=== PATIENT | male | born 1965 | race Caucasian/White ===

== ENCOUNTER → 2017-04-19 | Outpatient (CLI) | payer MEDICAID | LOC: FIMAGING 15:20 | PROVIDERS: ATTEND Psychiatry & Neurology Neurology | DX: J32.9 Chronic sinusitis, unspecified (principal); E11.9 Type 2 diabetes mellitus without complications ==

== ENCOUNTER 2017-10-21 | Emergency (ER) | payer MEDICAID | END 2017-10-21 13:03 | disposition home or self-care (01) | DX: S16.1XXA Strain of muscle, fascia and tendon at neck level, initial encounter (principal); E11.9 Type 2 diabetes mellitus without complications; W10.9XXA Fall (on) (from) unspecified stairs and steps, initial encounter ==

== ENCOUNTER 2018-05-17 15:57 | Inpatient (IN) | payer MEDICAID ==
[2018-05-17] MEDS ORDERED: NS 1,000 ML IV ONE (16:17)
[2018-05-17] MEDS ORDERED: ONDANSETRON 4 MG/2 ML VIAL IVP ONE (16:17)
[2018-05-17 16:41] LABS: PLATELET COUNT 269 10^3/uL (150-400)
--- NOTE | 2018-05-17 16:48 | EDPHY ---
H & P Time Seen by Provider: 05/17/18 16:16 HPI/ROS: Chief complaint. Vomiting HPI. Patient is a 53-year-old male who tells me initially "my life is crap". This is occurred since February 22. He had eye surgery on February 22 and was blind in the eye for about 5 weeks. He then developed stomach flu which he has had for 2 and half months which he describes as nausea and vomiting, burping , gas. His PCP wanted colonoscopy but apparently they were unable to perform this secondary to remaining stool in the colon. PCP also wanted his pancreas checked. He has had no fever. He complains of decreased energy. Occasional shallow breathing. He feels he has a brick in his throat. 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 He occasionally has intermittent diarrhea. ROS 10 systems were reviewed and negative with the exception of the elements mentioned in the history of present illness Past Medical/Surgical History: Orally controlled diabetes, legally blind Social History: Single, nonsmoker, no alcohol Smoking Status: Never smoked Physical Exam: General Appearance: Alert well-developed male mild distress vital signs are stable Eyes: Pupils equal and round no pallor or injection. ENT, pharynx without injection. No stridor. Swallowing secretions Respiratory: There are no retractions, lungs are clear to auscultation. Cardiovascular: Regular rate and rhythm. Gastrointestinal: Abdomen is soft and nontender, no masses, bowel sounds normal. Neurological: Awake and alert, sensory and motor exams grossly normal. Skin: Warm and dry, no rashes. Musculoskeletal: Neck is supple nontender. Extremities symmetrical, full range of motion. Psychiatric: Patient is oriented X 3, there is no agitation. Constitutional: Initial Vital Signs Temperature (C) 36.4 C 05/17/18 16:06 Heart Rate 86 05/17/18 16:06 Respiratory Rate 16 05/17/18 16:06 Blood Pressure 131/81 H 05/17/18 16:06 O2 Sat (%) 96 05/17/18 16:06 O2 Delivery Mode Room Air Allergies/Adverse Reactions: No Known Allergies Allergy (Unverified 10/21/17 11:38) Home Medications: Medication Instructions Recorded Cyclobenzaprine [Flexeril 10 MG 10 mg PO TID #15 tab 10/21/17 (RX)] Genofibrozil 10/21/17 glyBURIDE [Glyburide] 5 mg PO 10/21/17 metFORMIN HCL [Glucophage 500 mg 500 mg PO 10/21/17 (*)] Medical Decision Making - Diagnostics EKG Interpretation: EKG interpreted by me shows normal sinus rhythm the normal interval. Possible old anterior septal RI. No significant ST elevation or depression. No arrhythmia. 1 Pac. The rate is 79 No previous EKG for comparison Imaging Results: Imaging Impressions Chest X-Ray 05/17/18 16:44 Impression: Negative portable chest. Chest x-ray interpreted by me is normal CT abdomen pelvis reviewed by me and discussed with Dr. Kauffman is nonacute Procedures: IV normal saline ED Course/Re-evaluation: Re-evaluation 6:00 p.m.. Patient and I discussed imaging and lab results. We discussed treatment plan including recommendation for admission. He expresses understanding and agreement I consulted discussed the case with , hospitalist, who agrees to the admission Differential Diagnosis: Patient has pancreatitis. I considered small-bowel obstruction, diverticulitis - Data Points Laboratory Results: Laboratory Results 05/17/18 16:35 05/17/18 16:35 05/17/18 05/17/18 05/17/18 16:42 16:35 16:35 WBC 13.02 10^3/uL H 10^3/uL (3.80-9.50) RBC 5.40 10^6/uL 10^6/uL (4.40-6.38) Hgb 15.8 g/dL g/dL (13.7-17.5) Hct 47.3 % % (40.0-51.0) MCV 87.6 fL fL (81.5-99.8) MCH 29.3 pg pg (27.9-34.1) MCHC 33.4 g/dL g/dL (32.4-36.7) RDW 13.1 % % (11.5-15.2) Plt Count 269 10^3/uL 10^3/uL (150-400) MPV 10.3 fL fL (8.7-11.7) Neut % (Auto) 62.1 % % (39.3-74.2) Lymph % (Auto) 20.7 % % (15.0-45.0) [place] % (Auto) 8.4 % % (4.5-13.0) Eos % (Auto) 8.2 % H % (0.6-7.6) Baso % (Auto) 0.3 % % (0.3-1.7) Nucleat RBC Rel Count 0.0 % % (0.0-0.2) Absolute Neuts (auto) 8.09 10^3/uL H 10^3/uL (1.70-6.50) Absolute Lymphs (auto) 2.69 10^3/uL 10^3/uL (1.00-3.00) Absolute Monos (auto) 1.09 10^3/uL H 10^3/uL (0.30-0.80) Absolute Eos (auto) 1.07 10^3/uL H 10^3/uL (0.03-0.40) Absolute Basos (auto) 0.04 10^3/uL 10^3/uL (0.02-0.10) Absolute Nucleated RBC 0.00 10^3/uL 10^3/uL (0-0.01) Immature Gran % 0.3 % % (0.0-1.1) Immature Gran # 0.04 10^3/uL 10^3/uL (0.00-0.10) Sodium 137 mEq/L mEq/L (135-145) Potassium 4.3 mEq/L mEq/L (3.5-5.2) Chloride 101 mEq/L mEq/L (97-110) Carbon Dioxide 25 mEq/l mEq/l (22-31) Anion Gap 11 mEq/L mEq/L (6-14) BUN 13 mg/dL mg/dL (7-23) Creatinine 0.7 mg/dL mg/dL (0.7-1.3) Estimated GFR > 60 Glucose 199 mg/dL H mg/dL (70-100) Calcium 9.3 mg/dL mg/dL (8.5-10.4) Total Bilirubin 0.6 mg/dL mg/dL (0.1-1.4) Conjugated Bilirubin 0.5 mg/dL mg/dL (0.0-0.5) Unconjugated Bilirubin 0.1 mg/dL mg/dL (0.0-1.1) AST 24 IU/L IU/L (17-59) ALT 32 IU/L IU/L (21-72) Alkaline Phosphatase 82 IU/L IU/L (38-126) POC Troponin I 0.00 ng/mL ng/mL (0.00-0.08) Total Protein 6.9 g/dL g/dL (6.3-8.2) Albumin 4.2 g/dL g/dL (3.5-5.0) Lipase 478 IU/L H IU/L (23-300) Medications Given: Discontinued Medications Sodium Chloride (Ns) 1,000 mls @ 0 mls/hr IV EDNOW ONE; Wide Open PRN Reason: Protocol Stop: 05/17/18 16:18 Last Admin: 05/17/18 16:33 Dose: 1,000 mls Ondansetron HCl (Zofran) 4 mg IVP EDNOW ONE Stop: 05/17/18 16:18 Last Admin: 05/17/18 16:33 Dose: 4 mg Point of Care Test Results: Chemistry 05/17/18 16:42 POC Troponin I 0.00 ng/mL ng/mL (0.00-0.08) Departure - Departure Disposition: [facility] Inpatient Acute Clinical Impression: Pancreatitis Qualifiers: Chronicity: acute Pancreatitis type: unspecified pancreatitis type Acute pancreatitis complication: no infection or necrosis Qualified Code(s): K85.90 - Acute pancreatitis without necrosis or infection, unspecified Condition: Fair
--- NOTE | 2018-05-17 16:49 | CPEKG ---
Test Reason : OPEN Blood Pressure : / mmHG Vent. Rate : 079 BPM Atrial Rate : 081 BPM P-R Int : 126 ms QRS Dur : 093 ms QT Int : 375 ms P-R-T Axes : 039 009 031 degrees QTc Int : 430 ms Sinus rhythm Atrial premature complex Anteroseptal infarct, age indeterminate Confirmed by Imani Cho ([id number]) on 05/17/2018 4:48:35 PM Referred By: IMANI CHO Confirmed By:Imani Cho
[2018-05-17] MEDS ORDERED: IOPAMIDOL (ISOVUE-300) 100 ML BTL ONE (17:00)
[2018-05-17] MEDS ORDERED: HYDROmorphONE/DILAUDID 1 MG/ML INJ IVP PRN (18:57)
[2018-05-17] MEDS ORDERED: ONDANSETRON 4 MG/2 ML VIAL IVP PRN (18:57)
[2018-05-17] MEDS ORDERED: ONDANSETRON DISINTEGRATING 4 MG TAB PO PRN (18:57)
[2018-05-17] MEDS ORDERED: LORazepam 2 MG/ML INJ IVP PRN (18:57)
[2018-05-17] MEDS ORDERED: ACETAMINOPHEN 325 MG TAB PO PRN (18:57)
[2018-05-17] MEDS ORDERED: HYDROCODONE/APAP 5/325 TAB PO PRN (18:57)
[2018-05-17] MEDS ORDERED: LORazepam 0.5 MG TAB PO PRN (18:57)
[2018-05-17] MEDS ORDERED: PROMETHAZINE HCL 25 MG/ML INJ IVP PRN (18:57)
[2018-05-17] MEDS ORDERED: oxyCODONE IR 5 MG TAB PO PRN (18:57)
[2018-05-17] MEDS ORDERED: ALBUTEROL 60 PUFFS/8 GM MDI IH PRN (18:58)
[2018-05-17] MEDS ORDERED: D50W 25 GM/50 ML SYR IVP PRN (18:59)
[2018-05-17] MEDS ORDERED: NS 1,000 ML IV SCH (19:00)
[2018-05-17] MEDS ORDERED: INSULIN GLARGINE 100 UNITS/ML UNIT SC SCH (21:00)
[2018-05-17] MEDS ORDERED: FLUTICASONE NASAL 120 SPRAYS/16 GM MDI EACHNARE PRN (21:43)
--- NOTE | 2018-05-17 22:27 | PDGENHP ---
History and Physical - Chief Complaint "digestive issues" - History of Present Illness 53 yo M with PMH of DM2 presenting with complaints of difficulty with eating for the last 2-3 months. He notes that he has had issues with nausea, vomiting and diarrhea essentially every day for the last several months. It happens essentially whenever he eats but also will occur outside of times when he is eating. He has issues where he will burp profusely and this will often be followed by a bad taste in his mouth and frequently after that with vomiting. He has at times diarrhea, sometimes up to 12 times in a day, and at other times he will have constipation, but almost never has normal BMs. He will often wake in the night to have bowel movements. He has not had any abdominal pain outside of when he is having severe gas. He has lost nearly 20 pounds over the last several months due to these sxs. He has been feeling exhausted as well and in particular for the last couple of days slept nearly 22 hours a day. He has been having a bit of dizziness/lightheadedness when he is up and walking. He has been seen by his PCP Marcie Francois for this a couple of times, and last week underwent colonoscopy and EGD for further evaluation--both of which were relatively unremarkable, though the colonoscopy was a bit limited by inadequate prep. There was a nonspecific area of inflammation in the ascending colon which was biopsied, and pathology showing essentially normal colon--negative for celiac or h. pylori or malignancy. Stool studies at that time also negative. In the ER abd CT obtained showing stigmata of old or chronic pancreatitis with no acute pancreatitis found, no GB or other acute abnormalities and a lipase of 478. Patient notes he did have a bout of pancreatitis 10 years ago, but never since, and states that during this bout of sxs he has not really had abdominal pain. History Information - Allergies/Home Medication List Allergies/Adverse Reactions: No Known Allergies Allergy (Verified 05/17/18 19:00) Home Medications: Gemfibrozil [Lopid 600 MG (*)] 600 mg PO BIDAC 10/21/17 [Last Taken Unknown] Albuterol [Proventil Inhaler HFA (*)] 2 puffs IH Q6 PRN 05/17/18 [Last Taken Unknown] FLUoxetine [Prozac 20 MG (*)] 20 mg PO DAILY 05/17/18 [Last Taken Unknown] Fluticasone Nasal [Flonase Nasal [place] (RX)] 1 sprays NASAL HS PRN 05/17/18 [ Last Taken Unknown] Insulin Detemir [Levemir] 35 - 40 unit SQ HS 05/17/18 [Last Taken Unknown] Linagliptin [Tradjenta] 5 mg PO DAILY 05/17/18 [Last Taken Unknown] glyBURIDE [Glyburide] 2.5 mg PO DAILY@08 05/17/18 [Last Taken Unknown] metFORMIN HCL [Glucophage 1000 mg] 1,000 mg PO BIDMEAL 05/17/18 [Last Taken Unknown] I have personally reviewed and updated: family history, medical history, social history - Past Medical History diabetes type 2, psychiatric history (depresion) Additional medical history: GRICELDA. peripheral neuropathy. partial blindness - Surgical History Reports: no pertinent surgical hx - Family History Positive for: non-pertinent - Social History Smoking Status: Never smoked Alcohol Use: None Drug Use: None Additional social history: currently unemployed due to vision problems-- previously worked as a publisher, lives alone Review of Systems Review of Systems: ROS: 10pt was reviewed & negative except for what was stated in HPI & below Physical Exam Physical Exam: Temp Pulse Resp BP Pulse Ox 36.6 C 75 16 149/85 H 97 05/17/18 19:45 05/17/18 19:45 05/17/18 19:45 05/17/18 19:45 05/17/18 19:45 Constitutional: obese, uncomfortable Eyes: PERRL, scleral injection Ears, Nose, Mouth, Throat: moist mucous membranes, hearing normal Cardiovascular: regular rate and rhythym, no murmur, rub, or gallop, No edema Respiratory: no respiratory distress, no rales or rhonchi, clear to auscultation Gastrointestinal: No normoactive bowel sounds, No tenderness, No guarding, No rebound Genitourinary: no bladder tenderness Skin: warm, normal color Musculoskeletal: full muscle strength Neurologic: AAOx3 Psychiatric: interacting appropriately, not anxious, not encephalopathic Lab Data & Imaging Review 05/17/18 16:35 05/17/18 16:35 WBC 13.02 10^3/uL (3.80-9.50) H 05/17/18 16:35 RBC 5.40 10^6/uL (4.40-6.38) 05/17/18 16:35 Hgb 15.8 g/dL (13.7-17.5) 05/17/18 16:35 Hct 47.3 % (40.0-51.0) 05/17/18 16:35 MCV 87.6 fL (81.5-99.8) 05/17/18 16:35 MCH 29.3 pg (27.9-34.1) 05/17/18 16:35 MCHC 33.4 g/dL (32.4-36.7) 05/17/18 16:35 RDW 13.1 % (11.5-15.2) 05/17/18 16:35 Plt Count 269 10^3/uL (150-400) 05/17/18 16:35 MPV 10.3 fL (8.7-11.7) 05/17/18 16:35 Neut % (Auto) 62.1 % (39.3-74.2) 05/17/18 16:35 Lymph % (Auto) 20.7 % (15.0-45.0) 05/17/18 16:35 [place] % (Auto) 8.4 % (4.5-13.0) 05/17/18 16:35 Eos % (Auto) 8.2 % (0.6-7.6) H 05/17/18 16:35 Baso % (Auto) 0.3 % (0.3-1.7) 05/17/18 16:35 Nucleat RBC Rel Count 0.0 % (0.0-0.2) 05/17/18 16:35 Absolute Neuts (auto) 8.09 10^3/uL (1.70-6.50) H 05/17/18 16:35 Absolute Lymphs (auto) 2.69 10^3/uL (1.00-3.00) 05/17/18 16:35 Absolute Monos (auto) 1.09 10^3/uL (0.30-0.80) H 05/17/18 16:35 Absolute Eos (auto) 1.07 10^3/uL (0.03-0.40) H 05/17/18 16:35 Absolute Basos (auto) 0.04 10^3/uL (0.02-0.10) 05/17/18 16:35 Absolute Nucleated RBC 0.00 10^3/uL (0-0.01) 05/17/18 16:35 Immature Gran % 0.3 % (0.0-1.1) 05/17/18 16:35 Immature Gran # 0.04 10^3/uL (0.00-0.10) 05/17/18 16:35 Sodium 137 mEq/L (135-145) 05/17/18 16:35 Potassium 4.3 mEq/L (3.5-5.2) 05/17/18 16:35 Chloride 101 mEq/L (97-110) 05/17/18 16:35 Carbon Dioxide 25 mEq/l (22-31) 05/17/18 16:35 Anion Gap 11 mEq/L (6-14) 05/17/18 16:35 BUN 13 mg/dL (7-23) 05/17/18 16:35 Creatinine 0.7 mg/dL (0.7-1.3) 05/17/18 16:35 Estimated GFR > 60 05/17/18 16:35 Glucose 199 mg/dL (70-100) H 05/17/18 16:35 POC Glucose 73 mg/dL (70-100) 05/17/18 21:17 Calcium 9.3 mg/dL (8.5-10.4) 05/17/18 16:35 Total Bilirubin 0.6 mg/dL (0.1-1.4) 05/17/18 16:35 Conjugated Bilirubin 0.5 mg/dL (0.0-0.5) 05/17/18 16:35 Unconjugated Bilirubin 0.1 mg/dL (0.0-1.1) 05/17/18 16:35 AST 24 IU/L (17-59) 05/17/18 16:35 ALT 32 IU/L (21-72) 05/17/18 16:35 Alkaline Phosphatase 82 IU/L (38-126) 05/17/18 16:35 POC Troponin I 0.00 ng/mL (0.00-0.08) 05/17/18 16:42 Total Protein 6.9 g/dL (6.3-8.2) 05/17/18 16:35 Albumin 4.2 g/dL (3.5-5.0) 05/17/18 16:35 Lipase 478 IU/L (23-300) H 05/17/18 16:35 TSH 2.580 uIU/mL (0.465-4.680) 05/17/18 16:35 Urine Color YELLOW 05/17/18 20:16 Urine Appearance CLEAR 05/17/18 20:16 Urine pH 6.0 (5.0-7.5) 05/17/18 20:16 Ur Specific Early > 1.035 (1.002-1.030) H 05/17/18 20:16 Urine Protein NEGATIVE (NEGATIVE) 05/17/18 20:16 Urine Ketones NEGATIVE (NEGATIVE) 05/17/18 20:16 Urine Blood NEGATIVE (NEGATIVE) 05/17/18 20:16 Urine Nitrate NEGATIVE (NEGATIVE) 05/17/18 20:16 Urine Bilirubin NEGATIVE (NEGATIVE) 05/17/18 20:16 Urine Urobilinogen 4.0 EU (0.2-1.0) H 05/17/18 20:16 Ur Leukocyte Esterase NEGATIVE (NEGATIVE) 05/17/18 20:16 Ur Culture Indicated? NOT INDICATED (NI) 05/17/18 20:16 Urine Glucose NEGATIVE (NEGATIVE) 05/17/18 20:16 Visualized and Interpreted imaging results: Yes Interpretation: abd CT: calcified pancreas c/w old or chronic pancreatitis Visualized and Interpreted EKG results: Yes EKG Interpretation: Positive for: normal sinsus rhythm Assessment & Plan Assessment: Pancreatitis (Acute) 53 yo M with PMH of DM2, remote hx of pancreatitis presenting with several months of diarrhea, indigestion, n/v and e/o chronic pancreatitis # n/v/d: patient reports hx of several months of these sxs, has had w/u including egd/colonoscopy with biopsy that was unremarkable. CT with signs of chronic pancreatitis as next, ? pancreatic insufficiency versus gastroparesis. Will check fecal fat and fecal elastase, start pancreatic enzymes presumptively , get barium swallow with SBFT. Already had negative stool cultures, negative celiac and h.pylori at [facility] so will not repeat. # chronic pancreatitis: without complaints of abdominal pain and no CT evidence of acute on chronic, will repeat lipase in am to be sure it isn't climbing, patient notes one prior episode of pancreatitis 10 years ago and none since as far as he knows. Will hold linagliptin which is known to cause pancreatitis. # DM2: with most recent a1c of 7.9, will continue home medications other than linagliptin and metformin and start SSI # leukocytosis: without other s/s of infection, has been persistently mildly elevated on last several checks, will monitor # gricelda: cpap # visual issues: reports that he developed blindness following a steroid injection and that it was related to that rather than DM retinopathy, followed by optho # observation status Patient new to my care. Old records reviewed and summarized as above. Care plan reviewed with ER doctor as above.
[2018-05-18 05:50] LABS: PLATELET COUNT 282 10^3/uL (150-400)
[2018-05-18] MEDS: INSULIN LISPRO 100 UNIT/ML SC SCH ×3 (08:34→17:48)
[2018-05-18] MEDS: FLUoxetine 20 MG CAP PO SCH (08:43)
[2018-05-18] MEDS: GEMFIBROZIL 600 MG TAB PO SCH ×2 (08:43→17:48)
[2018-05-18] MEDS: glyBURIDE 2.5 MG TAB PO SCH (08:43)
--- NOTE | 2018-05-18 13:26 | HOSPPROG ---
Hospitalist Progress Note Assessment/Plan: 53 yo M with PMH of DM2, remote hx of pancreatitis presenting with several months of diarrhea, indigestion, n/v, weight loss # chronic n/v/d, worsening acutely, presumed acute pancreatitis with elev lipase today -egd/colonoscopy with biopsy as oupt prev (but reportedly inadequate bc not a good prep), negative stool cultures, negative celiac and h. pylori previously -CT with signs of chronic pancreatitis - fecal fat and fecal elastase pending -pancreatic enzymes started -barium swallow with SBFT revwd with him -will keep on clears for now, but higher lipase so may need to return to NPO if pain worsens -[facility] to consult-I discussed with Dr De La Garza # DM2: with most recent a1c of 7.9 -continue home medications other than linagliptin and metformin -SSI -hold linagliptin which is known to cause pancreatitis # leukocytosis: without other s/s of infection, has been persistently mildly elevated on last several checks # cuong: cpap # visual issues/blindness PCP- Dr Francois DISPO- observation status, but changing to inpt with elevated lipase/acute pancreatitis DVT prophy- SCDs FULL CODE Subjective: Does not have a GI MD established yet, was sent to [facility] for endoscopies bc of wait time for appts at [facility] per his report. Says pain OK today but still present. Has lost wt bc of sxs. Hasn't been able to work. Very frustrated. No CP/SOB currently. Roommate in room. Objective: Vital Signs Temp Pulse Resp BP Pulse Ox 96.8 F 84 18 148/87 H 97 05/18/18 07:52 05/18/18 07:52 05/18/18 07:52 05/18/18 07:52 05/18/18 07:52 Laboratory Results 05/18/18 04:40 05/18/18 04:40 05/17/18 05/18/18 05/19/18 11:59 11:59 11:59 Intake Total 1000 Output Total 400 Balance 600 - Time Spent With Patient Time Spent with Patient: greater than 35 minutes (total floor time) Time Spent with Patient: Greater than 35 minutes spent on this patients care, greater than 50% of time spent counseling, educating, and coordinating care regarding the above mentioned plan. - Physical Exam Constitutional: no apparent distress, appears nourished, obese Eyes: anicteric sclera Ears, Nose, Mouth, Throat: moist mucous membranes, hearing normal Cardiovascular: regular rate and rhythym, no murmur, rub, or gallop, No edema Respiratory: no respiratory distress, no rales or rhonchi, clear to auscultation Gastrointestinal: tenderness, other (reduced bowel sounds throughout, tenderness throughout), No guarding, No rebound, No distension Skin: warm Psychiatric: interacting appropriately, not encephalopathic, anxious ICD10 Worksheet Patient Problems: Problems Problem Status Onset Pancreatitis Acute
[2018-05-18] MEDS ORDERED: LACTULOSE 20 GM/30 ML UDCUP PO PRN (15:48)
[2018-05-18] MEDS ORDERED: MAGNESIUM HYDROXIDE 30 ML UDCUP PO PRN (15:48)
[2018-05-18] MEDS ORDERED: BISACODYL 10 MG SUPP PR PRN (15:48)
--- NOTE | 2018-05-18 15:59 | ASMTCMCOM ---
CM Note CM Note Notes: Reviewed chart and spoke w/RN, pt admitted for chronic pancreatitis. Anticipate he will dc home independent when medically stable. CM available for any changes. DC Plan: Independent Date Signed: 05/18/2018 03:59 PM Electronically Signed By:Estephania Canseco RN
--- NOTE | 2018-05-18 16:58 | PDMN ---
Medical Necessity Medical necessity: Change to IP, as of 05/18/18, per MD & MCG [id number]; los >2 mn for ongoing management of acutely worsening n/v/d w/leukocytosis r/t pancreatic insufficiency vs gastroparesis; requiring IVFs & GI consult; hx chronic pancreatitis, diabetes, blindness
[2018-05-18] MEDS: SENNOSIDES/DOCUSATE SODIUM TAB PO SCH (20:36)
[2018-05-18] MEDS: INSULIN GLARGINE 100 UNITS/ML UNIT SC SCH (22:01)
[2018-05-19 05:14] LABS: PLATELET COUNT 272 10^3/uL (150-400)
[2018-05-19] MEDS: INSULIN LISPRO 100 UNIT/ML SC SCH ×3 (07:29→16:57)
[2018-05-19] MEDS: SENNOSIDES/DOCUSATE SODIUM TAB PO SCH ×2 (07:29→20:48)
[2018-05-19] MEDS: POLYETHYLENE GLYCOL 3350 17 GM PKT PO PRN (07:31)
[2018-05-19] MEDS: FLUoxetine 20 MG CAP PO SCH (07:31)
[2018-05-19] MEDS: GEMFIBROZIL 600 MG TAB PO SCH ×2 (07:32→17:02)
[2018-05-19] MEDS: glyBURIDE 2.5 MG TAB PO SCH (07:33)
--- NOTE | 2018-05-19 12:23 | GCON ---
[f rep st] CONSULTATION DATE OF CONSULTATION: 05/19/2018 CHIEF COMPLAINT: Nausea and vomiting, diarrhea. HISTORY OF PRESENT ILLNESS: I am asked to see this patient in consultation by Dr. Merritt for chief margi brink of nausea and vomiting, diarrhea. Patient is a 53-year-old, followed by a plant safety leader in [place], who just underwent upper and lower endoscopies this week, and was admitted with increasing nausea and vomiting. He says he feels well. Has had weight loss. Workup here showed evidence of chronic pancreatitis on CT scan. He stat es he did have a history of pancreatitis 10 years ago. He states the cause was never identified, but this pain feels different than that. He has not been feeling well for about a month, although now mildred fofana is having constipation. He does feel he is tolerating liquids well, and overall, does feel better after the last 2 days. The patient states there is no known family history for pancreatic disease. He denies alcohol use. He does have GERD symptoms occasionally, for which he takes a prescription. He does not know the name, but states that it does help. There has been no blood in his stools or me konstantin. Apparently, workup in [place] included testing for celiac sprue, H pylori, and stool cultures , all of which were negative. Apparently, his upper and lower endoscopies were unremarkable, other t owens the colonoscopy had an inadequate prep. The patient does have an office visit with his gastroent erologist on Monday. ALLERGIES: No reported drug allergies. MEDICINES ON PRESENTATION: Gemfibrozil, albuterol, Prozac, nasal spray, insulin Tradjenta, glyburide , and metformin. PAST MEDICAL HISTORY: Noted for type 2 diabetes, history of depression, history of peripheral neurop athy, and blindness. SOCIAL HISTORY: Denies alcohol. FAMILY HISTORY: Negative for pancreatic disease. REVIEW OF SYSTEMS: I performed a complete review of systems, which is negative, except for the perti nent positives and negatives noted above in the HPI. PHYSICAL EXAM: VITAL SIGNS: Afebrile at 36.8, BP 151/91, pulse 78. CONSTITUTIONAL: Alert and orie nted. EYES: No scleral icterus. HEENT: No oral lesions. CARDIOVASCULAR: Regular rhythm. CHEST: Clear to auscultation. ABDOMEN: Soft, nontender, without rebound. NEUROLOGIC: Nonfocal. SKIN: No lesions. LABORATORY DATA: Normal H and H, white count of 10. Lipase was initially elevated with a high of 14 00, now 400. LFTs are normal. CT scan of the abdomen shows suggestion of old or chronic pancreatitis without features of acute panc reatitis and no fluid collection. Gallbladder appeared normal. No biliary dilatation. There is deon e steatosis, but this is unchanged from prior study in 2009. There are some left kidney stones. Upp er GI demonstrates sliding hiatal hernia with reflux. Query of some submucosal edema involving the m id to distal jejunum, likely representing some low-grade mesenteritis. ASSESSMENT: 1. Patient with nausea, vomiting, diarrhea. These have all resolved now. In fact, patient is now h aving constipation. 2. Abdominal pain, slowly improving. There is some suggestion of chronic pancreatitis. Cause is un clear. Could consider autoimmune versus triglyceride or idiopathic. Patient denies alcohol use. 3. Abnormal imaging suggesting mesenteritis. I think this could be from recent infection and likely the cause of his recent symptoms. Overall, unclear if he has pancreatic insufficiency, as now he is having constipation, not diarrhea. PLAN: 1. Would recommend PPI, given reflux seen on upper GI, as well as his reflux symptoms. 2. Agree with checking stool elastase and fecal fat, although suspicion for pancreatic insufficiency is low, as he is having constipation. However, if these are abnormal, he may benefit from pancreati c enzymes. 3. I would suggest at some point an MRCP and MRI of his pancreas, although will not be able to do no w, given that there is likely still contrast from his upper GI. This can be done as an outpatient wi th his regular plant safety leader. Also, would recommend checking triglycerides and IgG4. 4. Patient is interested in discharge today, as he is feeling better. I think this is reasonable, a s he is able to take p.o. and pain is tolerable, and he can follow up with his regular gastrologist o n Monday, as he has an appointment. Will sign off. Thank you for this consult. /[id number]/MODL
[2018-05-19] MEDS ORDERED: FLUTICASONE NASAL 120 SPRAYS/16 GM MDI EACHNARE SCH (16:30)
--- NOTE | 2018-05-19 19:42 | HOSPPROG ---
Hospitalist Progress Note Assessment/Plan: 53 yo M with PMH of DM2, remote hx of pancreatitis presenting with several months of diarrhea, indigestion, n/v, weight loss # chronic n/v/d, worsening acutely, presumed acute pancreatitis -egd/colonoscopy with biopsy as oupt prev (but reportedly inadequate bc not a good prep), negative stool cultures, negative celiac and h. pylori previously -CT with signs of chronic pancreatitis - fecal fat and fecal elastase pending -pancreatic enzymes started -barium swallow with SBFT revwd with him -appreciate Dr Gallo consult, revwd with him at length -he has a FU appt in [facility] on Monday already scheduled -lipase improved, sxs improved today, so will try to advance diet # DM2: with most recent a1c of 7.9 -continue home medications other than linagliptin and metformin -SSI -hold linagliptin which is known to cause pancreatitis, discussed with him holding this until seen/revwd with GI # leukocytosis: without other s/s of infection, has been persistently mildly elevated on last several checks -decreased today # cuong: cpap # visual issues/blindness PCP- Dr Francois DISPO- possible DC home in AM if sxs continue to improve and able to tolerate diet DVT prophy- SCDs FULL CODE Subjective: Says feeling better today. No BM yet post barium study. No V/D/SOB/ CP. Revwd Dr Wattersed recommendations with him. He is very anxious to feel better/normal again, wants to get back to work. Objective: Vital Signs Temp Pulse Resp BP Pulse Ox 97.2 F 82 17 157/94 H 96 05/19/18 15:43 05/19/18 15:43 05/19/18 15:43 05/19/18 15:43 05/19/18 15:43 Laboratory Results 05/19/18 04:23 05/19/18 04:23 05/18/18 05/19/18 05/20/18 11:59 11:59 11:59 Intake Total 400 1150 Output Total 300 Balance 100 1150 - Time Spent With Patient Time Spent with Patient: greater than 35 minutes (total floor time) Time Spent with Patient: Greater than 35 minutes spent on this patients care, greater than 50% of time spent counseling, educating, and coordinating care regarding the above mentioned plan. - Pending Discharge Pending Discharge Within 48 Hours: Yes Pending Discharge Date: 05/21/18 Pending Discharge Time: 11:00 - Physical Exam Constitutional: no apparent distress, appears nourished, not in pain, obese Eyes: anicteric sclera, EOMI Ears, Nose, Mouth, Throat: moist mucous membranes, hearing normal Cardiovascular: regular rate and rhythym, no murmur, rub, or gallop, No edema Respiratory: no respiratory distress, no rales or rhonchi, clear to auscultation Gastrointestinal: normoactive bowel sounds, tenderness (mild, throughout), No guarding, No rebound, No distension Skin: warm, normal color Neurologic: other (non focal) Psychiatric: interacting appropriately, not anxious, not encephalopathic ICD10 Worksheet Patient Problems: Problems Problem Status Onset Pancreatitis Acute
[2018-05-19] MEDS: DICYCLOMINE 20 MG TAB PO SCH (20:48)
[2018-05-19] MEDS: MAGNESIUM HYDROXIDE 30 ML UDCUP PO SCH (20:48)
[2018-05-19] MEDS: INSULIN GLARGINE 100 UNITS/ML UNIT SC SCH (20:52)
[2018-05-20] MEDS: DICYCLOMINE 20 MG TAB PO SCH ×2 (04:59→12:53)
[2018-05-20 05:20] LABS: PLATELET COUNT 257 10^3/uL (150-400)
[2018-05-20] MEDS: GEMFIBROZIL 600 MG TAB PO SCH (09:11)
[2018-05-20] MEDS: glyBURIDE 2.5 MG TAB PO SCH (09:11)
[2018-05-20] MEDS: INSULIN LISPRO 100 UNIT/ML SC SCH ×2 (09:11→12:42)
[2018-05-20] MEDS: FLUoxetine 20 MG CAP PO SCH (09:11)
[2018-05-20] MEDS: SENNOSIDES/DOCUSATE SODIUM TAB PO SCH (09:15)
[2018-05-20] MEDS: POLYETHYLENE GLYCOL 3350 17 GM PKT PO PRN (09:16)
[2018-05-20] MEDS: MAGNESIUM HYDROXIDE 30 ML UDCUP PO SCH (09:16)
[2018-05-20 12:11] VITALS: BP 145/80
--- NOTE | 2018-05-20 12:41 | ASDISCHSUM ---
Discharge Information Plan Status:Home with No Needs Medically Cleared to Leave: Discharge Date: D/C Disposition:Home, Routine, Self-Care ADT D/C Disposition:Home, Routine, Self-Care Projected Discharge Date:05/20/2018 12:00 AM Transportation at D/C:Family Discharge Delay Reason: Follow-Up Date:05/20/2018 12:00 AM Discharge Slot: Final Diagnosis: Placement Information Patient Contact Information Contact Name:PEDRO Relationship:Friend Address: Work Phone: City: [facility] Phone: State/Zip Code: Email: Financial Information Financial Class:Medicaid Primary Plan Desc:MEDICAID HEALTH FIRST [employer]ER Primary Plan Number:[id number] Secondary Plan Desc: Secondary Plan Number: Assessment Information LACE LACE Comorbidities - select Answers: Diabetes (uncontrolled or all that apply controlled) # of Emergency department Answers: 1-2 visits in the last 6 months Social determinants Answers: Mental health diagnosis (anxiety, depression, pers onality disorders, etc.) Score: 5 Date Signed: 05/20/2018 12:40 PM Electronically Signed By:ASHLEY Fleming [facility] CM Progress Note CM Note CM Note Notes: Reviewed chart and spoke w/RN, pt admitted for chronic pancreatitis. Anticipate he will dc home independent when medically stable. CM available for any changes. DC Plan: Independent Date Signed: 05/18/2018 03:59 PM Electronically Signed By:Estephania Canseco RN Case Management Discharge Plan Note Case Management Discharge Discharge Order Complete? Answers: Yes Patient to Obtain Answers: via Family Medications Transportation Arranged Answers: Family/Friends Discharge Comments Notes: Pt is getting discharged independently, no CM needs identified at this time. Family to transport. Will follow-up outpatient as indicated. Date Signed: 05/20/2018 12:38 PM Electronically Signed By:ASHLEY Fleming Intervention Information
== END 2018-05-20 12:58 | disposition home or self-care (01) | DRG 282 ==
LOC: F3N 19:40 → OBSVTOIN 05-18 16:37
PROVIDERS: ADMIT Internal Medicine; ATTEND Internal Medicine
DX: K85.90 Acute pancreatitis without necrosis or infection, unspecified (principal); E11.9 Type 2 diabetes mellitus without complications; K86.1 Other chronic pancreatitis; E86.9 Volume depletion, unspecified; H54.8 Legal blindness, as defined in USA; G47.33 Obstructive sleep apnea (adult) (pediatric)
CPT/HCPCS: 82607-90; 84484-ER; 96374; G0378; J1815; J2405; Q9967